=== PATIENT | female | born 1965 | race Caucasian/White ===

== ENCOUNTER 2022-10-01 08:18 | Emergency (ER) | payer MEDICARE, OTHER ==
[2022-10-01] MEDS ORDERED: Sodium Chloride 0.9% 10 ML Syringe FLUSH PRN (09:03)
[2022-10-01] MEDS ORDERED: Iopamidol 755 Mg/ML 100 ML Bottle IVPUSH ONE (09:03)
[2022-10-01] MEDS ORDERED: Sodium Chloride 0.9% 100 ML IV SCH (09:15)
[2022-10-01] MEDS ORDERED: Magnesium Sulfate/Water 2 GM in Premix Bag 1 BAG IV ONE (10:19)
[2022-10-01] MEDS ORDERED: Ondansetron 4 MG/2 ML SDV IVPUSH ONE (11:50)
[2022-10-01] MEDS ORDERED: cloNIDine 0.1 MG Tab PO ONE (12:37)
[2022-10-01] MEDS ORDERED: Metoclopramide 10 MG/2 ML SDV IVPUSH ONE (12:38)
== END 2022-10-01 16:06 | disposition home or self-care (01) ==
LOC: JD.ED 08:18
DX: I10 Essential (primary) hypertension (principal); Z72.0 Tobacco use; Z88.5 Allergy status to narcotic agent
CPT/HCPCS: 36415; 70450; 71045; 71275; 80053; 83735; 83880; 84443; 84484; 85025; 85610; 85730; 93005; 96365; 96366; 96375; 99285; A9270; J2405; J2765; J3475; J3490; Q9967; 93010; 99284